=== PATIENT | male | born 1950 | race Caucasian/White ===

== ENCOUNTER 2018-12-29 09:59 | Inpatient (IN) | payer MEDICARE, BC ==
[~2018-12-29] VITALS: Ht 170.2 cm; Wt 64.4 kg
--- NOTE | 2018-12-29 10:22 | ERD ---
ER Documentation Chief Complaint Chief Complaint Hypotension and ALOC at 20min into diaylsis now back to baseline HPI This is a 68-year-old man brought in by EMS for hypotension and altered mental status about 20 to 30 minutes into dialysis. Patient has recent end-stage kidney disease and has recently started hemodialysis, he also has invasive ductal carcinoma of the right breast status post mastectomy and then incomplete round of chemotherapy that was stopped due to liver decompensation followed by acute kidney failure. Patient was diagnosed with a urinary tract infection over a week ago and was admitted to [facility] and treated with IV antibiotics, he was discharged a few days ago on oral antibiotics. At the scene today he appeared confused and lethargic but after being picked up by EMS in route his mental status improved. He has had no recent fevers or chills, no blood per rectum or melena, no complaints of chest pain or shortness of breath. ROS All systems reviewed and are negative except as per history of present illness. Medications Home Meds Reported Medications Glipizide* (Glipizide*) 5 Mg Tablet, 5 MG PO NEEDEED, TAB 12/29/18 Lactulose* (Lactulose*) 10 Gm/15 Ml Solution, 30 ML PO QID, ML 12/29/18 Pantoprazole* (Pantoprazole*) 40 Mg Tablet.dr, 40 MG PO AC BREAKFAST, TAB 12/29/18 Midodrine* (Midodrine*) 5 Mg Tablet, 5 MG PO DAILY, TAB 12/29/18 Rifaximin* (Xifaxan*) 550 Mg Tablet, 550 MG PO BID, TAB 12/29/18 Allergies Allergies: Coded Allergies: No Known Allergy (Unverified , 12/29/18) PMhx/Soc End-stage kidney disease hemodialysis dependent, triple positive invasive ductal carcinoma of the right breast status post mastectomy, portal hypertension, portal vein thrombosis, recent SBP, diabetes mellitus, hypertension, cryptogenic cirrhosis FmHx Family History: diabetes Physical Exam Vitals Vital Signs Date Temp Pulse Resp B/P (MAP) Pulse Ox O2 O2 Flow FiO2 Time Delivery Rate 12/29/18 77 15 94/73 (80) 100 Nasal 2.0 12:49 Cannula 12/29/18 83 26 95/59 (71) 100 Nasal 2.0 10:39 Cannula 12/29/18 97.8 83 20 115/70 100 10:15 (85) Physical Exam GENERAL: Well-developed, appears lethargic, afebrile HEENT: Dry mucous membranes, pink conjunctive, jaundice and icterus NEURO: Alert and oriented 1, able to answer simple questions and follow simple commands, no focal deficits or facial asymmetry, pupils equal round reactive to light CARDIAC: Tachycardic and regular, no murmurs rubs or gallops LUNGS: Clear bilaterally no wheezing crackles or stridor ABDOMEN: Soft protuberant belly, distended, no guarding or rigidity SKIN: Warm and dry to touch, diffuse hyperpigmentation and xerostomia, superficial skin ulcers, no purulent discharge EXTREMITIES: No clubbing cyanosis or edema, calves are bilaterally symmetrical, no Homans sign, no popliteal cord sign. Distal pulses equal and bilateral PSYCH: Unable to assess Result Diagram: 12/29/18 1012 Results 24 hrs Laboratory Tests Test 12/29/18 10:12 White Blood Count 9.8 10^3/ul Red Blood Count 2.13 10^6/ul Hemoglobin 6.6 g/dl Hematocrit 21.5 % Mean Corpuscular Volume 100.9 fl Mean Corpuscular Hemoglobin 31.0 pg Mean Corpuscular Hemoglobin Concent 30.7 g/dl Red Cell Distribution Width 22.1 % Platelet Count 26 10^3/UL Mean Platelet Volume fl Immature Granulocytes % 0.700 % Neutrophils % % Segmented Neutrophils % (Manual) 66 % Band Neutrophils % (Manual) 14 % Lymphocytes % % Lymphocytes % (Manual) 9 % Reactive Lymphocytes % (Manual) 1 % Monocytes % % Monocytes % (Manual) 9 % Eosinophils % % Basophils % % Myelocytes % (Manual) 1 % Nucleated Red Blood Cells % 0.2 /100WBC Immature Granulocytes # 0.070 10^3/ul Neutrophils # 10^3/ul Neutrophils # (Manual) 6.6 10^3/ul Band Neutrophils # 1.3 10^3/ul Lymphocytes (Manual) 0.8 10^3/ul Lymphocytes # 10^3/ul Reactive Lymphocytes # 0.0 10^3/ul Monocytes # 10^3/ul Monocytes # (Manual) 0.8 10^3/ul Eosinophils # 10^3/ul Basophils # 10^3/ul Myelocytes # 0.0 10^3/ul Nucleated Red Blood Cells # 10^3/ul Platelet Estimate SIG DECREASED Polychromasia 3+ Poikilocytosis 3+ Anisocytosis 2+ Macrocytosis 2+ Prothrombin Time 39.2 Sec Prothrombin Time Ratio 3.1 INR International Normalized Ratio 4.03 Activated Partial Thromboplast Time > 180.0 Sec Urine Color BHUPENDRA Urine Clarity CLOUDY Urine pH 7.0 Urine Specific [place] 1.018 Urine Ketones NEGATIVE mg/dL Urine Nitrite NEGATIVE mg/dL Urine Bilirubin NEGATIVE mg/dL Urine Urobilinogen NEGATIVE mg/dL Urine Leukocyte Esterase 2+ Haylee/ul Urine Microscopic RBC 75 /HPF Urine Microscopic WBC > 182 /HPF Urine Hemoglobin 3+ mg/dL Urine Glucose NEGATIVE mg/dL Urine Total Protein 2+ mg/dl Ammonia 10 umol/l Current Medications Medications Dose Sig/Bonnie Start Time Status Last (Trade) Ordered Route PRN Stop Time Admin Dose Reason Admin Sodium 500 ml @ Q1H STAT 12/29/18 DC 12/29/18 Chloride 500 mls/hr IV 10:27 10:41 12/29/18 11:26 Lidocaine 5 ml STK-MED 12/29/18 DC 12/29/18 (Xylocaine ONCE .ROUTE 11:25 12:05 1% (Mpf)) 12/29/18 11:26 50 ml @ Q12 IVPB 12/29/18 DC Meropenem/Sod 100 mls/hr 13:30 ium Chloride 12/29/18 13:30 50 ml @ ONCE IVPB 12/29/18 DC 12/29/18 Meropenem/Sod 100 mls/hr 12:30 12:41 ium Chloride 12/29/18 12:31 Procedures/MDM IV line was established patient was placed on hospital monitor rhythm strip revealed a sinus rhythm at about 80 bpm with upright P and T waves. Patient was afebrile EKG performed, read by me revealed a normal sinus rhythm at 82 bpm, normal axis, narrow QRS complex, no concerning ST elevations or depressions noted, prolonged QT of 563 ms 1 view chest x-ray performed, read by me revealed a hemodialysis catheter in the right chest, cardiomegaly, no acute infiltrates, no pneumothorax. CT scan of the head was negative for acute bleed mass or shift. Ultrasound-guided paracentesis was performed by radiology department, 5 L of ascitic fluid removed cultures and fluid analysis results are pending and I will follow-up I initially administered 500 cc normal saline IV for labile blood pressure. CBC reveals anemia with a hemoglobin of 6.6, electrolytes, liver function test, troponin pending and I will follow-up. Urinalysis positive for infection. Ammonia level low. I ordered transfusion 2 units PRBC IV over 4 hours and meropenem 1 g IV for UTI. Critical Care: Time: 39 minutes, this was time separate from other billable procedures. Treatments/Evaluations: Close monitoring and treatment of unstable vital signs, cardiorespiratory, and neurologic status, while maintaining tight balance of fluid, respiratory, and cardiac interventions. Patient has no complaints at this time and his mental status has improved somewhat although he remains confused, he will be admitted to telemetry setting for continued medical management, blood transfusion, hemodialysis, and continued IV antibiotics. Departure Diagnosis: Primary Impression: Acute encephalopathy Additional Impressions: Acute liver failure Hepatic coma status: without hepatic coma Qualified Codes: K72.00 - Acute and subacute hepatic failure without coma End stage kidney disease Acute UTI Breast carcinoma Breast location: unspecified site of breast Estrogen receptor status: positive Patient sex: male Laterality: right Qualified Codes: C50.921 - Malignant neoplasm of unspecified site of right male breast; Z17.0 - Estrogen receptor positive status [ER+] Symptomatic anemia Ascites Ascites type: other type Qualified Codes: R18.8 - Other ascites Ruled Out: Altered level of consciousness Condition: Serious HE RUCKER MD Dec 29, 2018 10:22
[2018-12-29] MEDS ORDERED: SOD CHLORIDE 0.9% 500 ML IV STA (10:27)
[2018-12-29] MEDS ORDERED: RIFA550T4 PO (11:12)
[2018-12-29] MEDS ORDERED: PANT40TA4 PO (11:13)
[2018-12-29] MEDS ORDERED: MIDO5TAB PO (11:13)
[2018-12-29] MEDS ORDERED: GLIP5TAB13 PO (11:14)
[2018-12-29] MEDS ORDERED: LACT10SO5 PO (11:14)
[2018-12-29] MEDS ORDERED: LIDOCAINE 1% (MPF) 5 ML VIAL ONE (11:25)
[2018-12-29] MEDS ORDERED: MEROPENEM 1 GM/50ML(PMX) 50 ML IVPB SCH ×2 (12:30→13:30)
[2018-12-29] MEDS: LACTULOSE 30ML CUP PO SCH ×2 (17:00→21:00)
--- NOTE | 2018-12-29 17:09 | HP ---
Date/Time of Note Date/Time of Note DATE: 12/29/18 TIME: 16:59 Assessment/Plan VTE Prophylaxis SCD applied (from Nsg): Yes Pharmacological prophylaxis: heparin Lines/Catheters IV Catheter Type (from Nrsg): Saline Lock Urinary Cath still in place: Yes Reason Cath still needed: urinary retention Assessment/Plan Hospital Course 68 yo male with h/o ESRD, cirrhosis, and breast cancer who presents with hypotension during HD. Foudn to have acute anemia, ascites, encephelopathy, jaundice Overall patient at grave state of illness. Hospice has previously been recommended which seams appropriate. However, not clear the acuity of his liver disfunction. Regardless, family does not want to keep him here for more than 1 evening, only want him to received PRBCs and HD treatment and will then follow up with his known medical providers ESRD: - HD per renal Cirrhosis with hepatitis: - Unclear etiology - Lactulose/rifaxamin Breast cancer: - Further management with outpatient oncologist Anemia: - 2 units PRBCs being transfused Hypotension: - Resolved, does not appear to have infection/sepsis. Will monitor Discharge: likely to home tomorrow if able to tolerate per family request Result Diagram: 12/29/18 1012 12/29/18 1012 Results 24hrs Laboratory Tests Test 12/29/18 10:12 White Blood Count 9.8 Red Blood Count 2.13 L Hemoglobin 6.6 *L Hematocrit 21.5 L Mean Corpuscular Volume 100.9 Mean Corpuscular Hemoglobin 31.0 Mean Corpuscular Hemoglobin Concent 30.7 L Red Cell Distribution Width 22.1 H Platelet Count 26 *L Mean Platelet Volume Immature Granulocytes % 0.700 H Neutrophils % Segmented Neutrophils % (Manual) 66 Band Neutrophils % (Manual) 14 H Lymphocytes % Lymphocytes % (Manual) 9 L Reactive Lymphocytes % (Manual) 1 H Monocytes % Monocytes % (Manual) 9 Eosinophils % Basophils % Myelocytes % (Manual) 1 H Nucleated Red Blood Cells % 0.2 H Immature Granulocytes # 0.070 H Neutrophils # Neutrophils # (Manual) 6.6 Band Neutrophils # 1.3 H Lymphocytes (Manual) 0.8 Lymphocytes # Reactive Lymphocytes # 0.0 Monocytes # Monocytes # (Manual) 0.8 Eosinophils # Basophils # Myelocytes # 0.0 Nucleated Red Blood Cells # Platelet Estimate SIG DECREASED Polychromasia 3+ Poikilocytosis 3+ Anisocytosis 2+ Macrocytosis 2+ Prothrombin Time 39.2 H Prothrombin Time Ratio 3.1 INR International Normalized Ratio 4.03 Activated Partial Thromboplast Time > 180.0 *H Urine Color BHUPENDRA Urine Clarity CLOUDY A Urine pH 7.0 Urine Specific [place] 1.018 Urine Ketones NEGATIVE Urine Nitrite NEGATIVE Urine Bilirubin NEGATIVE Urine Urobilinogen NEGATIVE Urine Leukocyte Esterase 2+ H Urine Microscopic RBC 75 H Urine Microscopic WBC > 182 H Urine Hemoglobin 3+ H Urine Glucose NEGATIVE Urine Total Protein 2+ H Sodium Level 140 Potassium Level 4.2 Chloride Level 102 Carbon Dioxide Level 15 L Anion Gap 23 H Blood Urea Nitrogen 41 H Creatinine 3.92 H Est Glomerular Filtrat Rate mL/min 15 L Glucose Level 165 Calcium Level 8.9 Total Bilirubin 6.8 H Direct Bilirubin 5.10 H Indirect Bilirubin 1.7 H Aspartate Amino Transf (AST/SGOT) 111 H Alanine Aminotransferase (ALT/SGPT) 31 Alkaline Phosphatase 282 H Ammonia 10 Troponin I 0.041 B-Type Natriuretic Peptide 4760 H Total Protein 6.5 Albumin 2.8 L Globulin 3.70 H Albumin/Globulin Ratio 0.75 Lipase 4752 H HPI/ROS Admit Date/Time Admit Date/Time Hx of Present Illness 68 yo male wiht h/o breast cancer, cirrhosis, ESRD presented with intra-HD hypotension Patient seems to have been diagnosed with cirrhosis, breast cancer, and ESRD all within the last year. Has undergone mastectomy and is on chemotherapy (Taxol per family). He underwent spleen embolization in [facility] for thrombocytopenia prior to mastectomy. He has been on HD with unclear etiology of kidney failure. Recently he was treated for UTI and just finished abx a couple days ago. Today he underwent routine HD treatment where during HD BP noted to be systolic 50s and sent to ED Here patient is clearly at advanced state of illness. He has undergone LVP and two units PRBCs transfused. His daughter at bedside says they don't him to stay here long. I discussed that he apperas quite ill. She is aware and hospice has been discussed before. She prefers everything be arranged through his MDs at [facility] and [facility], though she does not have their contact information at this time. ROS Constitutional: no complaints, improved Eyes: no complaints ENT: no complaints Respiratory: no complaints Cardiovascular: no complaints Gastrointestinal: no complaints Genitourinary: no complaints Musculoskeletal: no complaints Skin: no complaints Neurologic: no complaints Endocrine: no complaints Lymphatic: no complaints Psychological: no complaints, nl mood/affect Immunologic: no complaints PMH/Family/Social Past Medical History Medical History: renal disease Medications Current Medications Lactulose (Enulose) 20 gm QID PO ; Start 12/29/18 at 17:00 Midodrine (Proamatine) 5 mg DAILY PO ; Start 12/30/18 at 09:00 Pantoprazole (Protonix Tab) 40 mg AC BREAKFAST PO ; Start 12/30/18 at 07:00 Rifaximin (Xifaxan) 550 mg BID PO ; Start 12/29/18 at 21:00 Coded Allergies: No Known Allergy (Unverified , 12/29/18) Past Surgical History Spleen embolization Mastectomy Family History Significant Family History: no pertinent family hx Social History Alcohol Use: none Smoking Status: Never smoker Drug Use: none Exam/Review of Systems Vital Signs Vitals Vital Signs Date Temp Pulse Resp B/P (MAP) Pulse Ox O2 O2 Flow FiO2 Time Delivery Rate 12/29/18 82 17 99/58 (72) 100 Room Air 16:46 12/29/18 2.0 14:00 12/29/18 97.8 10:15 Exam Exam Lethargic apperance Arousable Jaundiced RRR Breathing comfortable HD cath in placed Abdomen soft nt nd no peripheral edema SHRUTHI YOUNG MD Dec 29, 2018 17:09
[2018-12-29] MEDS ORDERED: NACL 0.9% 3 ML SYG IV SCH (17:30)
--- NOTE | 2018-12-29 18:49 | CONS ---
DATE OF ADMISSION: 12/29/2018 DATE OF CONSULTATION: 12/29/2018 TYPE OF CONSULTATION: Nephrology. REASON FOR CONSULTATION: End-stage renal disease. PHYSICIAN REQUESTING CONSULT: Dr. Joya. HISTORY OF PRESENT ILLNESS: This is a 68-year-old male with a past medical history of end-stage bon l disease on dialysis Saturday, Saturday, Saturday, last hemodialysis was Saturday, access is a Perm-A-Cat h; history of end-stage liver disease, history of diabetes, history of right breast ductal carcinoma status post mastectomy, history of portal vein thrombosis, history of SVT, who presents to [facility] for altered mental status. The patient was having hemodialysis when 20 to 30 mariely derek became hypotensive. The patient was brought into the emergency room. Upon arrival, the patient had laboratory data drawn, which showed blood pressure in the 115/70. The patient had a hemoglobin of 6.6, platelet count 26. The patient had a urinalysis that showed positive pyuria. The patient wa s started on antibiotics, typed and crossed for blood transfusion. In terms of patient's renal history, the patient has been on hemodialysis for approximately 1 to 2 mo [facility]. He states he dialyzes at [facility]. The patient denies any hemoptysis, hematemesis or h ematochezia. PAST MEDICAL HISTORY: History of end-stage renal disease, history of diabetes, history of cryptogeni c cirrhosis, history of SVT, history of portal hypertension, history of ductal carcinoma. PAST SURGICAL HISTORY: Status post mastectomy, status post Perm-A-Cath placement. FAMILY HISTORY: No family history of kidney disease. SOCIAL HISTORY: Does not drink, smoke or do drugs. MEDICATIONS: Have been reviewed. REVIEW OF SYSTEMS: Unable to do adequate review of systems. The patient is altered. Pertinent posi tives as obtained by reviewing medical records, speaking to hospital staff, stated in HPI, otherwise negative. PHYSICAL EXAMINATION: VITAL SIGNS: Blood pressure is 95/51, respiration 17, pulse 78, temperature 97.8. HEENT: Head is normocephalic. NECK: Supple. HEART: Regular rate. LUNGS: Show diminished breath sounds at the base. ABDOMEN: Soft, nontender to palpation. No rebound or guarding. EXTREMITIES: Negative for clubbing, cyanosis. Positive edema. DERMATOLOGIC: No rashes. MUSCULOSKELETAL: No joint effusion. NEUROLOGIC: No change in exam. LABORATORY DATA: From 12/29/2018 was reviewed. IMAGING STUDIES: Reviewed. CT scan of the brain was reviewed. ASSESSMENT AND PLAN: This is a 68-year-old male who presents with: 1. End-stage renal disease. The patient is on dialysis Saturday, Saturday, and Saturday. Plan is for hemodialysis tomorrow. We will dialyze for 3 hours 3k bath, calcium 2.5, ultrafiltrate as tolerated. 2. Volume overload secondary to end-stage renal disease and cirrhosis. Continue ultrafiltration wit h hemodialysis if the patient remains hemodynamically stable. 3. Anemia, etiology is unclear, possibly multifactorial secondary to end-stage renal disease, questi onable gastrointestinal bleed. The patient is being transfused 2 units PRBC, monitor hemoglobin and hematocrit levels closely. We will check stool for occult blood. Will continue Epogen. 4. Thrombocytopenia, likely secondary to splenic sequestration due to underlying cirrhosis. Continu e to monitor. 5. Mineral bone disorder, monitor calcium and phosphorus levels. 6. Acidosis, metabolic. Etiology secondary to end-stage renal disease. We will continue dialysis o n a high bicarbonate bath. 7. Acute encephalopathy. Etiology is likely multifactorial, toxic metabolic, hepatic. We will cont inue to monitor closely. Follow up ammonia level. 8. End-stage liver disease. Continue current medical management. The patient is currently decompen sated. The patient is status post paracentesis. We will continue medical management with lactulose, rifaximin. Consider GI evaluation. 9. History of breast cancer status post mastectomy. 10. Possible sepsis secondary to urinary tract infection. Continue current antibiotic regimen. Fol low up cultures. Thank you, Dr. Joya, for this interesting consult. It will be a pleasure to follow patient with ros hanson throughout the hospital course. Dictated By: TIP GOOD DO NR/NTS Conf#: [id number] DID#: [id number]
[2018-12-29 19:54] VITALS: PULSE 90
[2018-12-29 19:55] VITALS: Ht 170.2 cm; Wt 64.4 kg
[2018-12-29 20:25] VITALS: BP 103/52; RESP 19
[2018-12-29] MEDS: RIFAXIMIN 550 MG TAB PO SCH (21:00)
[2018-12-29] MEDS ORDERED: LIDOCAINE 5% PATCH TD ONE (21:30)
[2018-12-30] VITALS (26 sets, daily range): BP systolic 87–140; BP diastolic 34–85; PULSE 78–102; RESP 17–20
[2018-12-30] MEDS ORDERED: CEFTRIAXONE 1 GM/50 ML (PMX) 50 ML IVPB SCH (03:00)
[2018-12-30] MEDS ORDERED: morphine 2 MG INJ IV STA (05:07)
[2018-12-30] MEDS ORDERED: PANTOPRAZOLE (EC) 40 MG TAB PO SCH (07:00)
[2018-12-30] MEDS ORDERED: MIDODRINE 5 MG TAB PO SCH (09:00)
--- NOTE | 2018-12-30 09:51 | PN ---
DATE: 12/30/2018 SUBJECTIVE: Patient overnight was noted to be hypertensive. The patient is status post blood transf usion. No other acute events noted. OBJECTIVE: VITAL SIGNS: Blood pressure is 87/50, respiration 19, pulse 99, temperature 97.8. HEENT: Head is normocephalic. NECK: Supple. HEART: Regular rate. LUNGS: Show diminished breath sounds at the base. ABDOMEN: Soft, nontender to palpation without rebound or guarding. EXTREMITIES: Negative for clubbing, cyanosis. Positive edema. DERMATOLOGIC: No rashes. MUSCULOSKELETAL: No joint effusions. NEUROLOGIC: No change in exam. MEDICATIONS: The patient's medications are reviewed. LABORATORY DATA: From 12/30/2018 is reviewed. ASSESSMENT AND PLAN: 1. End-stage renal disease. Plan is for hemodialysis today. We will dialyze for 3 hours 3k bath. The patient will be given IV albumin to help with maintaining hemodynamics and solute clearance. 2. Volume overload secondary to end-stage renal disease and cirrhosis. Continue ultrafiltration wit h hemodialysis if hemodynamically stable. 3. Anemia, etiology is multifactorial secondary to end-stage renal disease, questionable gastrointes tinal bleed. The patient is status post blood transfusion. Continue to monitor hemoglobin and hemat ocrit. Continue Epogen. 4. Thrombocytopenia, likely due to cirrhosis secondary to splenic sequestration. Continue to monit or. 5. Mineral bone disorder, monitor calcium and phosphorus levels. 6. Acidosis, likely metabolic secondary to end-stage renal disease. Continue dialysis on a high bic arbonate bath. 7. Acute encephalopathy. Etiology is multifactorial, toxic metabolic, questionable uremic. Continu e dialysis. Continue to monitor. 8. End-stage liver disease. The patient is decompensated. Patient is status post paracentesis. Co ntinue to monitor. Continue lactulose and rifaximin. 9. History of breast cancer status post mastectomy. 10. Possible sepsis, urinary tract infection. Continue current medical regimen. DISPOSITION: Please note the patient has overall very poor prognosis. Dictated By: TIP GOOD DO NR/NTS Conf#: [id number] DID#: [id number]
[2018-12-30] MEDS: LACTULOSE 30ML CUP PO SCH ×3 (10:32→17:00)
[2018-12-30] MEDS: RIFAXIMIN 550 MG TAB PO SCH (10:32)
[2018-12-30] MEDS: MIDODRINE 5 MG TAB PO SCH ×2 (10:48→13:56)
--- NOTE | 2018-12-30 11:57 | CONS ---
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 Pt's family currently declines to move forward with further additional imaging at this time. They would prefer to stabilize enough to have HD him and take him home. Hepatitis serology- in am Continue lactulose titrate to 3-4 BM per day Agree with and continue Xifaxan 550mg po BID Supportive care Obtain records from [facility]- recent imaging i.e. MRCP Patient seen in collaboration with Dr. Allan CC: NICHOL ALLAN MD ; Consultation Date/Type/Reason Admit Date/Time Date of Consultation: Dec 30, 2018 Type of Consult GI Reason for Consultation Liver Cirrhosis Date/Time of Note DATE: 12/30/18 TIME: 11:19 Hx of Present Illness This is a 68-year-old male with past medical history of liver cirrhosis with ascites, recent diagnosis of breast cancer July 2017 status post surgical intervention and IV chemotherapy x1 round. Who has been in and out of the hospital since receiving chemotherapy patient was recently at [facility] for 1 month in October he was discharged about 2 weeks ago. Patient was receiving dialysis and complained of extreme fatigue and hypotension came to [facility] for further evaluation. Labs were obtained in the ED pt noted to have severe anemia with elevated MCV, he is status blood transfusion x2 units, with improvement in HGG and indices are now consistent with normocytic anemia. Currently hemoglobin is 8.6, WBC 12.5, platelet count is 20, INR on 12/29/2018 is 4.03. Patient with direct hyperbilirubinemia T bili is 8.5, direct bili is 6.5, AST 105, alkaline phosphatase is 325. Has been consulted for further evaluation regarding liver cirrhosis. At time of evaluation family is at bedside who states they do not want to move forward with any repeat imaging, as patient was recently hospitalized and had a full work-up at [facility]. They stated liver cirrhosis secondary to nonalcoholic fatty liver disease. He denies a history of alcohol use, drug use or smoking. They are requesting to stabilize patient enough to move forward with hemodialysis and hopefully discharge home. They are aware there are limited options in regards to treating liver cirrhosis. There are no overt signs of GI bleed, patient is on lactulose and Xifaxan tolerating well plan to have dialysis in near future when able to tolerate. Review of Systems: A 12 system, review was conducted and is negative except as noted in the HPI or here. Past Medical History Medical History: renal disease Home Meds Reported Medications Glipizide* (Glipizide*) 5 Mg Tablet, 5 MG PO NEEDEED, TAB 12/29/18 Lactulose* (Lactulose*) 10 Gm/15 Ml Solution, 30 ML PO QID, ML 12/29/18 Pantoprazole* (Pantoprazole*) 40 Mg Tablet.dr, 40 MG PO AC BREAKFAST, TAB 12/29/18 Midodrine* (Midodrine*) 5 Mg Tablet, 5 MG PO DAILY, TAB 12/29/18 Rifaximin* (Xifaxan*) 550 Mg Tablet, 550 MG PO BID, TAB 12/29/18 Medications Current Medications Lactulose (Enulose) 20 gm QID PO Last administered on 12/30/18at 10:32; Admin Dose 20 GM; Start 12/29/18 at 17:00 Pantoprazole (Protonix Tab) 40 mg AC BREAKFAST PO ; Start 12/30/18 at 07:00 Rifaximin (Xifaxan) 550 mg BID PO Last administered on 12/30/18at 10:32; Admin Dose 550 MG; Start 12/29/18 at 21:00 Midodrine (Proamatine) 10 mg TID PO Last administered on 12/30/18at 10:48; Admin Dose 10 MG; Start 12/30/18 at 09:00 IV Flush (NS 3 ml) 3 ml PER PROTOCOL IV ; Start 12/29/18 at 17:30 Ceftriaxone Sodium 50 ml @ 100 mls/hr Q24H IVPB Last administered on 12/30/18at 03:30; Admin Dose 100 MLS/HR; Start 12/30/18 at 03:00 Epoetin Darell-epbx (RETACRIT(esrd)) 10,000 unit TuThSa@1700 SC ; Start 12/30/18 at 17:00 Allergies: Coded Allergies: No Known Allergy (Unverified , 12/29/18) Social History Alcohol Use: none Smoking Status: Former smoker Drug Use: none Exam/Review of Systems Exam Vitals Vital Signs Date Temp Pulse Resp B/P (MAP) Pulse Ox O2 O2 Flow FiO2 Time Delivery Rate 12/30/18 97.5 99 19 96/56 (69) 97 Nasal 10:06 Cannula 12/29/18 2.0 19:55 Intake and Output 12/29/18 12/29/18 12/30/18 1515:00 23:00 07:00 IntakeIntake Total 900 ml 50 ml BalanceBalance 900 ml 50 ml Exam PHYSICAL EXAMINATION: GENERAL: Chronically ill appearing, Jaundice SKIN: Dialysis catheter EYES: Pupils equal reactive to light, sclera clear, icteric, no discharge. EARS/NOSE AND THROAT: Ears normal, nose normal. NECK: Supple, no masses CHEST: Inspection within normal limits. CARDIOVASCULAR: Heart: Regular rate and rhythm. RESPIRATORY: Lungs clear to auscultation GASTROINTESTINAL AND LIVER: Abdomen: Soft, non tenderness, mildly distended, no hernias, no masses, no organomegaly, no ascites, no guarding, no rebound tenderness, normoactive bowel sounds. Rectal: Deferred. EXTREMITIES: No cyanosis, clubbing or edema. Results Result Diagram: 12/30/18 0731 12/30/18 0731 Results 24hrs Laboratory Tests Test 12/30/18 06:08 12/30/18 07:03 12/30/18 07:31 Bedside Glucose 77 White Blood Count 11.6 H 12.5 H Red Blood Count 2.77 #L 2.82 L Hemoglobin 8.6 #L 8.6 L Hematocrit 26.3 #L 26.0 L Mean Corpuscular Volume 94.9 92.2 Mean Corpuscular Hemoglobin 31.0 30.5 Mean Corpuscular 32.7 33.1 Hemoglobin Concent Red Cell Distribution Width 22.3 H 22.1 H Platelet Count 18 #*L 20 *L Mean Platelet Volume Immature Granulocytes % 1.000 H 1.000 H Neutrophils % 81.0 H Segmented Neutrophils 82 H 85 H % (Manual) Band Neutrophils % (Manual) 5 H 5 H Lymphocytes % 7.9 L Lymphocytes % (Manual) 4 L 2 L Reactive Lymphocytes % (Manual) 1 H Monocytes % 9.1 Monocytes % (Manual) 8 5 Eosinophils % 0.8 Basophils % 0.2 Nucleated Red Blood Cells % 1 H 0.5 H Immature Granulocytes # 0.120 H 0.120 H Neutrophils # 9.4 H Neutrophils # (Manual) 9.6 H 10.7 H Band Neutrophils # 0.5 0.6 Lymphocytes (Manual) 0.4 L 0.2 L Lymphocytes # 0.9 Reactive Lymphocytes # 0.1 H Monocytes # 1.1 H Monocytes # (Manual) 0.9 0.6 Eosinophils # 0.1 Basophils # 0.0 Nucleated Red Blood Cells # 0.1 H Platelet Estimate SIG DECREASED SIG DECREASED Polychromasia 3+ 1+ Poikilocytosis 3+ 1+ Anisocytosis 1+ 1+ Macrocytosis 1+ 1+ Target Cells 1+ 1+ Sodium Level 143 144 Potassium Level 4.1 3.8 Chloride Level 106 106 Carbon Dioxide Level 19 L 19 L Anion Gap 18 H 19 H Blood Urea Nitrogen 52 H 52 H Creatinine 4.41 H 4.65 H Est Glomerular Filtrat 13 L 13 L Rate mL/min Glucose Level 72 # 70 Calcium Level 9.1 9.3 Total Bilirubin 8.5 H Direct Bilirubin 6.50 H Indirect Bilirubin 2.0 H Aspartate Amino 105 H Transf (AST/SGOT) Alanine 36 Aminotransferase (ALT/SGPT) Alkaline Phosphatase 325 H Total Protein 6.3 Albumin 2.6 L Globulin 3.70 H Albumin/Globulin Ratio 0.70 Eosinophils % (Manual) 1 Basophils % (Manual) 1 Promyelocytes % (Manual) 1 H Basophils # (Manual) 0.1 H Promyelocytes # 0.1 H Giant Platelets 1 H Hemoglobin A1c 5.8 Medications Medication Current Medications Lactulose (Enulose) 20 gm QID PO Last administered on 12/30/18at 10:32; Admin Dose 20 GM; Start 12/29/18 at 17:00 Pantoprazole (Protonix Tab) 40 mg AC BREAKFAST PO ; Start 12/30/18 at 07:00 Rifaximin (Xifaxan) 550 mg BID PO Last administered on 12/30/18at 10:32; Admin Dose 550 MG; Start 12/29/18 at 21:00 Midodrine (Proamatine) 10 mg TID PO Last administered on 12/30/18at 10:48; Admin Dose 10 MG; Start 12/30/18 at 09:00 IV Flush (NS 3 ml) 3 ml PER PROTOCOL IV ; Start 12/29/18 at 17:30 Ceftriaxone Sodium 50 ml @ 100 mls/hr Q24H IVPB Last administered on 12/30/18at 03:30; Admin Dose 100 MLS/HR; Start 12/30/18 at 03:00 Epoetin Darell-epbx (RETACRIT(esrd)) 10,000 unit TuThSa@1700 SC ; Start 12/30/18 at 17:00 CORBIN SERRANO Dec 30, 2018 11:36
[2018-12-30] MEDS ORDERED: PHYTONADIONE 10 MG/ML INJ SC SCH (12:00)
[2018-12-30] MEDS: ALBUMIN HUMAN 25% 100 ML IV PRN ×2 (13:52→15:16)
--- NOTE | 2018-12-30 15:47 | DS ---
Date/Time of Note Date/Time of Note DATE: 12/30/18 TIME: 15:46 Discharge Summary Admission/Discharge Info Admit Date/Time Dec 29, 2018 at 12:19 Discharge Date/Time Discharge Diagnosis Cirrhosis ESRD Breast cancer Patient Condition: Guarded Hx of Present Illness 68 yo male wiht h/o breast cancer, cirrhosis, ESRD presented with intra-HD hypotension Patient seems to have been diagnosed with cirrhosis, breast cancer, and ESRD all within the last year. Has undergone mastectomy and is on chemotherapy (Taxol per family). He underwent spleen embolization in [facility] for thrombocytopenia prior to mastectomy. He has been on HD with unclear etiology of kidney failure. Recently he was treated for UTI and just finished abx a couple days ago. Today he underwent routine HD treatment where during HD BP noted to be systolic 50s and sent to ED Here patient is clearly at advanced state of illness. He has undergone LVP and two units PRBCs transfused. His daughter at bedside says they don't him to stay here long. I discussed that he apperas quite ill. She is aware and hospice has been discussed before. She prefers everything be arranged through his MDs at [facility] and [facility], though she does not have their contact information at [facility] s time. Hospital Course He was transfused 2 units of PRBCs. He was given a dialysis session. His family requested he be discharged home with palliative care services which were arranged Home Meds Reported Medications Glipizide* (Glipizide*) 5 Mg Tablet, 5 MG PO NEEDEED, TAB 12/29/18 Lactulose* (Lactulose*) 10 Gm/15 Ml Solution, 30 ML PO QID, ML 12/29/18 Pantoprazole* (Pantoprazole*) 40 Mg Tablet.dr, 40 MG PO AC BREAKFAST, TAB 12/29/18 Midodrine* (Midodrine*) 5 Mg Tablet, 5 MG PO DAILY, TAB 12/29/18 Rifaximin* (Xifaxan*) 550 Mg Tablet, 550 MG PO BID, TAB 12/29/18 Primary Care Provider Not On Staff Doctor Pending Labs Laboratory Tests Test 12/30/18 06:08 12/30/18 07:03 12/30/18 07:30 12/30/18 07:31 Bedside 77 Glucose mg/dL (70-220) White Blood 11.6 12.5 Count 10^3/ul (4.8-1 10^3/ul (4.8-1 0.8) 0.8) Red Blood 2.77 2.82 Count 10^6/ul (4.70- 10^6/ul (4.70- 6.10) 6.10) Hemoglobin 8.6 8.6 g/dl (14.0-18. g/dl (14.0-18. 0) 0) Hematocrit 26.3 26.0 % (42.0-52.0) % (42.0-52.0) Mean 94.9 92.2 Corpuscular fl (82.0-101.0 fl (82.0-101.0 Volume ) ) Mean 31.0 30.5 Corpuscular pg (29.0-33.0) pg (29.0-33.0) Hemoglobin Mean 32.7 33.1 Corpuscular g/dl (32.0-37. g/dl (32.0-37. Hemoglobin Conc 0) 0) ent Red Cell 22.3 22.1 Distribution % (11.5-14.5) % (11.5-14.5) Width Platelet Count 18 20 10^3/UL (140-4 10^3/UL (140-4 15) 15) Mean Platelet fl (7.4-10.4) fl (7.4-10.4) Volume Immature 1.000 1.000 Granulocytes % % (0.001-0.429 % (0.001-0.429 ) ) Neutrophils % 81.0 % (39.0-77.0) % (39.0-77.0) Segmented 82 % (39-77) 85 % (39-77) Neutrophils % (Manual) Band 5 % (0-4) 5 % (0-4) Neutrophils % (Manual) Lymphocytes % 7.9 % (15.0-51.0) % (15.0-51.0) Lymphocytes % 4 % (15-51) 2 % (15-51) (Manual) Reactive 1 % (0-0) Lymphocytes % (Manual) Monocytes % 9.1 % (0.0-11.0) % (0.0-11.0) Monocytes % 8 % (0-11) 5 % (0-11) (Manual) Eosinophils % 0.8 % (0.0-7.0) % (0.0-7.0) Basophils % 0.2 % (0.0-2.0) % (0.0-2.0) Nucleated Red 1 % (0-0) 0.5 Blood Cells % /100WBC (0.0-0 .0) Immature 0.120 0.120 Granulocytes # 10^3/ul (0.0-0 10^3/ul (0.0-0 .031) .031) Neutrophils # 9.4 10^3/ul (1.6-7 10^3/ul (1.6-7 .5) .5) Neutrophils # 9.6 10.7 (Manual) 10^3/ul (1.6-7 10^3/ul (1.6-7 .5) .5) Band 0.5 0.6 Neutrophils # 10^3/ul (0.0-0 10^3/ul (0.0-0 .6) .6) Lymphocytes 0.4 0.2 (Manual) 10^3/ul (0.8-2 10^3/ul (0.8-2 .9) .9) Lymphocytes # 0.9 10^3/ul (0.8-2 10^3/ul (0.8-2 .9) .9) Reactive 0.1 Lymphocytes # 10^3/ul (0.0-0 .0) Monocytes # 1.1 10^3/ul (0.3-0 10^3/ul (0.3-0 .9) .9) Monocytes # 0.9 0.6 (Manual) 10^3/ul (0.3-0 10^3/ul (0.3-0 .9) .9) Eosinophils # 0.1 10^3/ul (0.0-0 10^3/ul (0.0-0 .5) .5) Basophils # 0.0 10^3/ul (0.0-0 10^3/ul (0.0-0 .1) .1) Nucleated Red 0.1 10^3/ul (0.0-0 Blood Cells # 10^3/ul (0.0-0 .0) .0) Platelet SIG DECREASED SIG DECREASED Estimate Polychromasia 3+ (0-0) 1+ (0-0) Poikilocytosis 3+ (0-0) 1+ (0-0) Anisocytosis 1+ (0-0) 1+ (0-0) Macrocytosis 1+ (0-0) 1+ (0-0) Target Cells 1+ (0-0) 1+ (0-0) Sodium Level 143 144 mmol/L (135-14 mmol/L (135-14 4) 4) Potassium 4.1 3.8 Level mmol/L (3.5-5. mmol/L (3.5-5. 1) 1) Chloride Level 106 106 mmol/L (97-110 mmol/L (97-110 ) ) Carbon Dioxide 19 19 Level mmol/L (21-31) mmol/L (21-31) Anion Gap 18 (5-13) 19 (5-13) Blood Urea 52 52 Nitrogen mg/dl (7-20) mg/dl (7-20) Creatinine 4.41 4.65 mg/dl (0.61-1. mg/dl (0.61-1. 24) 24) Est Glomerular 13 13 Filtrat mL/min (>60) mL/min (>60) Rate mL/min Glucose Level 72 70 mg/dl (70-220) mg/dl (70-220) Calcium Level 9.1 9.3 mg/dl (8.4-10. mg/dl (8.4-10. 2) 2) Total 8.5 Bilirubin mg/dl (0.2-1.3 ) Direct 6.50 Bilirubin mg/dl (0.00-0. 20) Indirect 2.0 Bilirubin mg/dl (0-1.1) Aspartate Amino 105 Transf (AST/SGO IU/L (15-46) T) Alanine 36 Aminotransferas IU/L (13-69) e (ALT/SGPT) Alkaline 325 Phosphatase IU/L (42-121) Total Protein 6.3 g/dl (6.1-8.1) Albumin 2.6 g/dl (3.3-4.9) Globulin 3.70 g/dl (1.3-3.2) Albumin/Globuli 0.70 n Ratio Hepatitis B NEGATIVE (NEGA Surface TIVE) Antigen Eosinophils % 1 % (0-7) (Manual) Basophils % 1 % (0-2) (Manual) Promyelocytes % 1 % (0-0) (Manual) Basophils # 0.1 (Manual) 10^3/ul (0.0-0 .0) Promyelocytes 0.1 # 10^3/ul (0-0) Giant Platelets 1 % (0-0) Hemoglobin A1c 5.8 % (0-5.9) SHRUTHI YOUNG MD Dec 30, 2018 15:47
[2018-12-30] MEDS ORDERED: EPOETIN ALFA-EPBX (ESRD) 10,000 UNIT/ML VIAL SC SCH (17:00)
== END 2018-12-30 18:46 | disposition hospice, home (50) | DRG 312 ==
LOC: EDSEX 09:59 → E/R 09:59 → TEL 12:19 → SUATTDRO 14:30
PROVIDERS: ADMIT Internal Medicine; ATTEND Internal Medicine
PROC: 30233N1 Transfusion of Nonautologous Red Blood Cells into Peripheral Vein, Percutaneous Approach (ICD-10-PCS; 2018-12-29)
PROC: 0W9G3ZZ Drainage of Peritoneal Cavity, Percutaneous Approach (ICD-10-PCS; 2018-12-29)
PROC: 5A1D70Z Performance of Urinary Filtration, Intermittent, Less than 6 Hours Per Day (ICD-10-PCS; principal; 2018-12-30)
DX: I95.3 Hypotension of hemodialysis (principal); N18.6 End stage renal disease; R18.8 Other ascites; E87.2 Acidosis; G93.40 Encephalopathy, unspecified; I12.0 Hypertensive chronic kidney disease with stage 5 chronic kidney disease or end stage renal disease; E11.22 Type 2 diabetes mellitus with diabetic chronic kidney disease; K76.0 Fatty (change of) liver, not elsewhere classified; D69.6 Thrombocytopenia, unspecified; K72.90 Hepatic failure, unspecified without coma; K74.69 Other cirrhosis of liver; D63.1 Anemia in chronic kidney disease; K75.9 Inflammatory liver disease, unspecified; C50.921 Malignant neoplasm of unspecified site of right male breast; Z79.818 Long term (current) use of other agents affecting estrogen receptors and estrogen levels; Z99.2 Dependence on renal dialysis; Z90.11 Acquired absence of right breast and nipple; Z79.84 Long term (current) use of oral hypoglycemic drugs
CPT/HCPCS: 36415; 36430; 70450; 71045; 80048; 80053; 81001; 82140; 82962; 83036; 83690; 83880; 84080; 84484; 85025; 85610; 85730; 86850; 86900; 86901; 86920; 87070; 87075; 87081; 87086; 87102; 87116; 87340; 90935; 93005; 96360; 96361; J0696; J2185; J2270; J7040; P9016; P9047; Q5105